=== PATIENT | female | born 1935 | race Caucasian/White ===

== ENCOUNTER 2019-11-03 09:25 | Outpatient (CLI) | payer MEDICARE, BC, SELFPAY ==
--- NOTE | ~2019-11-03 | MM_ITS ---
EXAMINATION: MM screening [facility] BI w jamie HISTORY: Screening TECHNIQUE: Craniocaudal and mediolateral oblique 3-D tomosynthesis images were obtained and synthetic 2-D images were generated. CAD analysis was submitted and interpreted. COMPARISON: Comparison to multiple prior studies sequentially, with oldest reviewed study dated 10/06. BREAST PARENCHYMAL COMPOSITION: There are scattered areas of fibroglandular density. FINDINGS: Clustered bilateral breast calcifications and asymmetry is are stable. There is no evidence of suspicious mass, calcification, or architectural distortion to suggest malignancy in either breas t. There has been no suspicious interval change. IMPRESSION: 1. No mammographic evidence of malignancy. 2. Recommend routine screening mammography in one year. BI-RADS Category 2: Benign finding(s). Reviewed, dictated and finalized at location A.
== END 2019-11-03 09:26 | disposition home or self-care (01) ==
LOC: ANHIMG 09:29
PROVIDERS: PCP Family Medicine; Visit Provider Obstetrics & Gynecology
DX: Z12.31 Encounter for screening mammogram for malignant neoplasm of breast (principal)
CPT/HCPCS: 77063; 77067

== ENCOUNTER 2020-11-04 08:55 | Outpatient (CLI) | payer OTHER, SELFPAY ==
--- NOTE | ~2020-11-04 | MM_ITS ---
EXAMINATION: MM screening [facility] BI w jamie HISTORY: Screening TECHNIQUE: Craniocaudal and mediolateral oblique 3-D tomosynthesis images were obtained and synthetic 2-D images were generated. CAD analysis was submitted and interpreted. COMPARISON: Comparison to multiple prior studies sequentially, with oldest reviewed study dated 10/13. BREAST PARENCHYMAL COMPOSITION: Breast composed of scattered areas of fibroglandular density. FINDINGS: There are stable bilateral breast asymmetries and calcifications. There are surgical change s in the upper outer quadrant of the left breast posteriorly. There is a developing focal asymmetry i n the upper central aspect of the left breast adjacent to a tissue marker. There are punctate associa karishma calcifications. IMPRESSION: 1. Developing left breast asymmetry, upper central left breast anteriorly. 2. Additional mammographic views and possible breast ultrasound are recommended. BI-RADS Category 0: Incomplete: Needs additional imaging evaluation. Reviewed, dictated and finalized at location A. IMPRESSION: 1. Developing left breast asymmetry, upper central left breast anteriorly. 2. Additional mammographic views and possible breast ultrasound are recommended . BI-RADS Category 0: Incomplete: Needs additional imaging evaluation.
== END 2020-11-04 08:56 | disposition home or self-care (01) ==
LOC: ANHIMG 08:57
PROVIDERS: PCP Family Medicine; Visit Provider Nurse Practitioner
DX: Z12.31 Encounter for screening mammogram for malignant neoplasm of breast (principal); R92.8 Other abnormal and inconclusive findings on diagnostic imaging of breast
CPT/HCPCS: 77063; 77067

== ENCOUNTER 2020-11-21 12:38 | Outpatient (CLI) | payer MEDICARE, SELFPAY ==
--- NOTE | ~2020-11-21 | MMUS_ITS ---
EXAMINATION: MM diagnostic [facility] LT w jamie, US breast LT limited HISTORY: Follow-up left breast asymmetry TECHNIQUE: Additional 3-D tomosynthesis images of the left breast were performed and synthetic 2-D im ages were generated. CAD analysis was submitted and interpreted. High resolution Limited left breast ultrasound was performed. COMPARISON: Comparison to multiple prior studies sequentially, with oldest reviewed study dated 08/2017. BREAST PARENCHYMAL COMPOSITION: Breast composed of scattered areas of fibroglandular density. FINDINGS: MAMMOGRAPHIC FINDINGS: There is a developing spiculated mass in the upper central aspect of the left breast anteriorly with adjacent tissue marker. There are surgical changes in the mid outer aspect of the left breast, consis tent with previous lumpectomy site. There are coarse benign-appearing left breast calcifications. ULTRASOUND: Limited left breast ultrasound: At 3:00, 3 cm from the nipple, there is an 11 mm irregular shaped hyp oechoic mass with posterior shadowing, likely corresponding to prior lumpectomy site. At 3:00, 4 cm f rom the nipple there is a 6 mm calcification with posterior shadowing. At 10:00, 3 cm from the nipple , there is an oval hypoechoic mass with echogenic hilum measuring 4 mm, likely benign intramammary ly mph node. At 11:00 there is an oval circumscribed hypoechoic mass with internal vascularity measuring 7 mm. There is posterior shadowing and parallel orientation. There is internal vascularity. At 12:00 , 1-2 cm from the nipple, there is an irregular shaped hypoechoic mass with posterior shadowing measu ring 8 x 8 x 5 mm new spiculated density seen on mammography. There is subtle internal vascularity. IMPRESSION: 1. Irregular shaped hypoechoic mass at 12:00, 1-2 cm from the nipple corresponding to the developing spiculated mass seen on mammography. Solid oval hypoechoic mass at 11:00, 1 cm from the nipple. 2. Ultrasound-guided left breast biopsies recommended. BI-RADS category 4, suspicious findings. Reviewed, dictated and finalized at location A. IMPRESSION: 1. Irregular shaped hypoechoic mass at 12:00, 1-2 cm from the nipple correspond ing to the developing spiculated mass seen on mammography. Solid oval hypoechoi c mass at 11:00, 1 cm from the nipple. 2. Ultrasound-guided left breast biopsies recommended. BI-RADS category 4, suspicious findings.
== END 2020-11-21 12:39 | disposition home or self-care (01) ==
PROVIDERS: PCP Family Medicine; Visit Provider Family Medicine
DX: R92.8 Other abnormal and inconclusive findings on diagnostic imaging of breast (principal)
CPT/HCPCS: 76642; 77061; 77065; G0279

== ENCOUNTER 2020-12-13 10:00 | Outpatient (CLI) | payer MEDICARE, SELFPAY ==
--- NOTE | ~2020-12-13 | MMUS_ITS ---
EXAMINATION: US GUIDED NEEDLE BIOPSY DATE: 12/13/2020 13:33 CDT INDICATION: 11:00 and 12:00 sonographic breast masses. TECHNIQUE AND FINDINGS: The risks and potential benefits of the procedure were discussed with the patient, and written inform ed consent was obtained. Timeout procedure was performed. After sterile preparation of the left breas t, 1% lidocaine was utilized for local anesthesia. A 14G spring-loaded biopsy gun needle was advanced to the edge of the regions of interest first at 11 :00 and subsequently at 12:00 from a medial approach utilizing sonographic guidance. A total of at l east three tissue core samples were obtained through each lesion. An Inrad tissue marker clip was th en placed at the biopsy site. Hemostasis was achieved. A sterile bandage was applied. The patient tolerated procedure well. There was a hematoma at the 11:00 biopsy site, for which extend ed manual compression of 30 minutes was applied. The patient was given verbal instructions prior to departing from the department. A two view mammogra m was performed to document tissue marker clip placement. The tissue samples were submitted to surgic al pathology for histologic analysis. IMPRESSION: 1. Successful ultrasound guided biopsy of left 11:00 and 12:00 breast masses with biopsy marker plac ement. Please refer to pathology report for histologic analysis. Reviewed, dictated and finalized at Location [facility]. Reviewed, dictated and finalized at location A. IMPRESSION: 1. Successful ultrasound guided biopsy of left 11:00 and 12:00 breast masses w ith biopsy marker placement. Please refer to pathology report for histologic an alysis.
--- NOTE | ~2020-12-13 | US_ITS ---
EXAMINATION: US GUIDED NEEDLE BIOPSY DATE: 12/13/2020 13:49 CDT INDICATION: Sonographic 11:00 and 12:00 masses. TECHNIQUE AND FINDINGS: The risks and potential benefits of the procedure were discussed with the patient, and written inform ed consent was obtained. Timeout procedure was performed. After sterile preparation of the left breas t, 1% lidocaine was utilized for local anesthesia. A 14G spring-loaded biopsy gun needle was advanced to the edge of the 11:00 and subsequently 12:00 le sions from a medial approach utilizing sonographic guidance. A total of up to 4 tissue core samples were obtained through the lesion. An Inrad tissue marker clip was then placed at the biopsy site. He mostasis was achieved. A sterile bandage was applied. The patient tolerated procedure well. There was a hematoma at the 11:00 biopsy site, for which 30 min utes extended manual compression was applied. The patient was given verbal instructions prior to dep arting from the department. A two view mammogram was performed to document tissue marker clip placeme nt. The tissue samples were submitted to surgical pathology for histologic analysis. IMPRESSION: 1. Successful ultrasound guided biopsy of left 11:00 and 12:00 breast masses with biopsy marker plac ement. Please refer to pathology report for histologic analysis. Reviewed, dictated and finalized at [facility]. Reviewed, dictated and finalized at location A. IMPRESSION: 1. Successful ultrasound guided biopsy of left 11:00 and 12:00 breast masses w ith biopsy marker placement. Please refer to pathology report for histologic an alysis.
== END 2020-12-13 10:01 | disposition home or self-care (01) ==
LOC: ANHIMG 10:04
PROVIDERS: PCP Family Medicine; Visit Provider Surgery
DX: R92.8 Other abnormal and inconclusive findings on diagnostic imaging of breast (principal); Z85.3 Personal history of malignant neoplasm of breast; N60.32 Fibrosclerosis of left breast; N60.31 Fibrosclerosis of right breast; N64.1 Fat necrosis of breast
CPT/HCPCS: 19083; 19084; 88305; 88342; A4648

== ENCOUNTER 2021-05-12 09:36 | Outpatient (CLI) | payer MEDICARE, SELFPAY ==
--- NOTE | ~2021-05-12 | DEXA_ITS ---
Bone Density Report Name: JOSUE LEE Age: 85 Sex: Female Ethnicity: White Date of : 1935 Indication: osteopenia; height loss; cancer; postmenopausal Referring Provider: JOSH BARCENAS Study: Bone densitometry was performed. Exam Date: May 12, 2021 Accession number: [id number] Bone Density: Region BMD T-score Z-score Classification AP Spine (L1, L2) 0.942 -0.3 2.3 Normal Femoral Neck (Left) 0.610 -2.2 0.3 Osteopenia Total Hip (Left) 0.745 -1.6 0.6 Osteopenia Total Hip Bilateral Avg 0.763 -1.5 0.8 Osteopenia Femoral Neck (Right) 0.750 -0.9 1.6 Normal Total Hip (Right) 0.780 -1.3 0.9 Osteopenia World Health Organization criteria for BMD impression classify patients as: Normal (T-score at or above -1.0), Osteopenia (T-score between -1.0 and -2.5), or Osteoporosis (T-score at or below -2.5). 10-year Fracture Risk(1): Major Osteoporotic Fracture 15% Hip Fracture 4.8% Reported Risk Factors: [place] (), Neck BMD=0.610, BMI=34.1 (1) FRAX(R) Version 3.08. Fracture probability calculated for an untreated patient. Fracture probability may be lower if the patient has received treatment. Previous Exams: Region Exam Age BMD T-score BMD Change BMD Change Date g/cm2 vs Baseline vs Previous AP Spine(L1, L2) 05/12/2021 85 0.942 -0.3 0.098(11.6%)# 0.104(12.4%)* 02/09/2019 83 0.839 -1.3 -0.006(-0.7%)# -0.098(-10.5%) 01/18/2017 81 0.937 -0.4 0.093(11.0%)# 0.021(2.3%) 01/14/2015 79 0.916 -0.6 0.072(8.5%)# 0.045(5.2%)# 01/10/2013 77 0.871 -1.0 0.027(3.2%)# 0.066(8.3%)* 01/10/2011 75 0.805 -1.6 -0.040(-4.7%)# -0.071(-8.1%)# 01/05/2009 73 0.875 -0.9 0.031(3.7%)* 0.045(5.4%)* 12/17/2006 71 0.831 -1.3 -0.014(-1.6%) -0.007(-0.8%) 12/06/2004 69 0.837 -1.3 -0.007(-0.8%) -0.007(-0.8%) 08/02/2002 66 0.844 -1.2 Total Hip(Left) 05/12/2021 85 0.745 -1.6 -0.081(-9.8%)# -0.041(-5.2%)* 02/09/2019 83 0.786 -1.3 -0.041(-4.9%)# 0.017(2.2%) 01/18/2017 81 0.769 -1.4 -0.058(-7.0%)# -0.034(-4.3%)* 01/14/2015 79 0.803 -1.1 -0.024(-2.9%)# -0.003(-0.3%)# 01/10/2013 77 0.806 -1.1 -0.021(-2.5%)# 0.024(3.1%) 01/10/2011 75 0.781 -1.3 -0.045(-5.4%)# 0.017(2.3%)# 01/05/2009 73 0.764 -1.5 -0.062(-7.5%)* -0.017(-2.2%) 12/17/2006 71 0.781 -1.3 -0.045(-5.5%)* -0.011(-1.3%) 12/06/2004 69 0.791 -1.2 -0.035(-4.2%)* -0.035(-4.2%)* 08/02/2002 66 0.826 -0.9 Total Hip(Right) 05/12/2021 85 0.780 -1.3 -0.045(-5.4%)# -0.014(-1.8%) 02/09/2019 83 0.794 -1.2 -0.030(-3.7%)# -0.011(-1.4%) 01/18/2017 81 0.805
== END 2021-05-12 09:37 | disposition home or self-care (01) ==
PROVIDERS: PCP Family Medicine; Visit Provider Obstetrics & Gynecology
DX: R29.890 Loss of height (principal); Z78.0 Asymptomatic menopausal state; M85.852 Other specified disorders of bone density and structure, left thigh; M85.851 Other specified disorders of bone density and structure, right thigh
CPT/HCPCS: 77080

== ENCOUNTER 2021-08-07 08:40 | Outpatient (CLI) | payer MEDICARE, SELFPAY ==
--- NOTE | 2021-08-07 08:53 | ECHO_ITS ---
Patient Info Name: Claudia Gordillo Age: 85 years : 1935 Gender: Female Ht: 66 in Wt: 205 lbs BSA: 2.12 m2 HR: 79 bpm BP: 156 / 79 mmHg Technical Quality: Fair Exam Date: 08/07/2021 9:16 AM Exam Location: [facility] Patient Status: Outpatient Admit Date: 08/07/2021 Staff Ordering Physician: Shankar Wilkins DO [employer] Developer: Umm Zapata RDCS Attending Provider: Shankar Wilkins DO Referring Physician: Franky FAIRCHILD; Exam Type: CA echo doppler color flow Study Info Indications - heart disease unspecified Complete two-dimensional, color flow and Doppler transthoracic echocardiogram is performed. Summary 1. Complete two-dimensional, color flow and Doppler transthoracic echocardiogram is performed. 2. Left ventricular chamber dimension is normal. 3. Left ventricular systolic function is normal, estimated at 60-65%. 4. The left ventricular diastolic function is grade I diastolic dysfunction. 5. E/e' 17 is elevated. 6. Mild right ventricular hypertrophy. 7. Left atrial chamber dimension is moderately enlarged. 8. Right atrial chamber dimension is mildly enlarged. 9. There is mild tricuspid valve regurgitation. 10. No pulmonary hypertension, estimated pulmonary arterial systolic pressure is 39 mmHg. Left Ventricle E/e' 17 is elevated. Left ventricular chamber dimension is normal. Left ventricular systolic function is normal, estimated at 60-65%. The left ventricular diastolic function is grade I diastolic dysfunction. Right Ventricle Mild right ventricular hypertrophy. Right ventricular chamber dimension is normal. Right ventricular systolic function is normal. Left Atria Left atrial chamber dimension is moderately enlarged. Right Atria Right atrial chamber dimension is mildly enlarged. Aortic Valve The aortic valve is trileaflet. There is no aortic valve stenosis. There is no aortic valve regurgitation. Pulmonic Valve There is no pulmonic regurgitation. Mitral Valve There is no mitral valve stenosis. There is no mitral valve regurgitation. Tricuspid Valve There is mild tricuspid valve regurgitation. No pulmonary hypertension, estimated pulmonary arterial systolic pressure is 39 mmHg. Pericardium/Pleural There is no pericardial effusion. Inferior Vena Cava Normal inferior vena cava with >50% collapse upon inspiration consistent with normal right atrial pressure, 5 mmHg. Aorta The aortic root size at the sinus of Valsalva is normal. Left Ventricular Outflow Tract Name Value Normal LVOT 2D LVOT Diameter 2.0 cm LVOT Doppler LVOT Peak Gradient 6 mmHg LVOT Mean Gradient 3 mmHg LVOT VTI 23 cm LVOT VTI/AV VTI Ratio 0.8 LVOT Stroke Volume 70 ml LVOT CO 14.3 l/min LVOT CI 6.7 l/min/m2 Pulmonic Valve Name Value Normal
== END 2021-08-07 08:41 | disposition home or self-care (01) ==
LOC: ANHCARD 08:42
PROVIDERS: PCP Family Medicine; Visit Provider Internal Medicine Cardiovascular Disease
DX: I51.9 Heart disease, unspecified (principal); I51.7 Cardiomegaly
CPT/HCPCS: 93306

== ENCOUNTER 2021-12-15 08:12 | Outpatient (CLI) | payer MEDICARE, SELFPAY ==
--- NOTE | ~2021-12-15 | MM_ITS ---
EXAMINATION: MM screening [facility] BI w jamie HISTORY: Screening mammogram, history of left breast cancer TECHNIQUE: Craniocaudal and mediolateral oblique 3-D tomosynthesis images were obtained and synthetic 2-D images were generated. CAD analysis was submitted and interpreted. COMPARISON: 11/21/2020, 11/04/2020, 11/03/2019, 10/31/2018 BREAST PARENCHYMAL COMPOSITION: The breasts are almost entirely fatty. FINDINGS: Scattered benign-appearing calcifications are present. There are stable lumpectomy changes in the upper outer quadrant of the left breast. No suspicious mass, calcification, or architectural d istortion are identified in either breast to suggest malignancy. There has been no suspicious interva l change. IMPRESSION: 1. No mammographic evidence of malignancy. 2. Recommend routine screening mammography in one year. BI-RADS Category 2: Benign finding(s). Reviewed, dictated and finalized at location A.
== END 2021-12-15 08:13 | disposition home or self-care (01) ==
LOC: ANHIMG 08:14
PROVIDERS: PCP Family Medicine; Visit Provider Obstetrics & Gynecology
DX: Z12.31 Encounter for screening mammogram for malignant neoplasm of breast (principal)
CPT/HCPCS: 77063; 77067

== ENCOUNTER 2022-01-19 08:58 | Outpatient (CLI) | payer MEDICARE, SELFPAY ==
[2022-01-19 19:55] LABS: Basophils Absolute Auto 0.1 K/mm3 (0.0-0.1); Basophils Percent Auto 0.9 % (0.2-1.2); Eosinophils Absolute Auto 0.1 K/mm3 (0-0.3); Eosinophils Percent Auto 1.5 % (0-4.4); Hematocrit 44.3 % (37.0-47.0); Hemoglobin 14.6 g/dL (12.0-15.0); Immature Granulocyte Absolute 0.03 K/mm3 (0.00-0.031); Immature Granulocyte Percent A 0.3 % (0-0.5); Lymphocytes Absolute Auto 1.21 K/mm3 (0.9-3.2); Lymphocytes Percent Auto 13.3 % (18.3-44.2); Mean Corpuscular Hemoglobin 30.8 pg (26-34); Mean Corpuscular Volume 93.5 fl (80-100); Mean Platelet Volume 11.5 fl (7.4-10.4); Monocytes Absolute Auto 0.7 K/mm3 (0.1-0.6); Monocytes Percent Auto 7.8 % (2.6-8.5); Neutrophils Absolute Auto 6.9 K/mm3 (1.3-6.7); Neutrophils Percent Auto 76.2 % (45.5-73.1); Platelet Count Result 229 k/mm3 (150-375); Red Blood Count 4.74 M/mm3 (4.2-5.4); Red Cell Distribution Width 13.7 % (11.5-14.5); White Blood Count 9.1 K/mm3 (4.5-10.0)
[2022-01-19 20:04] LABS: Alanine Aminotransferase 18 U/L (6-35); Albumin Level 4.4 g/dL (3.5-5.1); Alkaline Phosphatase 83 U/L (38-126); Anion Gap 9 mmol/L (8-16); Aspartate Amino Transferase 35 U/L (14-36); Bilirubin,Total 0.8 mg/dL (0.2-1.3); Blood Urea Nitrogen 18 mg/dL (7-17); Calcium 9.4 mg/dL (8.4-10.2); Carbon Dioxide 30 mmol/L (22-30); Chloride 100 mmol/L (98-107); Cholesterol 187 mg/dL (0-200); Estimated Glomerular Filt Rate 53; Glucose 93 mg/dL (65-110); HDL Direct 67 mg/dL; Potassium 3.7 mmol/L (3.4-5.0); Sodium 139 mmol/L (137-145); Triglycerides 176 mg/dL (<150)
[2022-01-19 20:21] LABS: LDL Cholesterol Direct 73 mg/dL
== END 2022-01-19 08:59 | disposition home or self-care (01) ==
LOC: ANHGOSHLAB 09:01
PROVIDERS: PCP Family Medicine; Visit Provider Nurse Practitioner
DX: E78.5 Hyperlipidemia, unspecified (principal); I10 Essential (primary) hypertension
CPT/HCPCS: 36415; 80053; 80061; 85025

== ENCOUNTER 2023-01-05 07:52 | Outpatient (CLI) | payer MEDICARE, SELFPAY ==
--- NOTE | ~2023-01-05 | MM_ITS ---
EXAMINATION: MM screening [facility] BI w jamie HISTORY: Screening mammogram TECHNIQUE: Craniocaudal and mediolateral oblique 3-D tomosynthesis images were obtained and synthetic 2-D images were generated. CAD analysis was submitted and interpreted. COMPARISON: 12/15/2021, 11/04/2020, 11/03/2019 BREAST PARENCHYMAL COMPOSITION:There are scattered areas of fibroglandular density. FINDINGS: There is stable postoperative change at the upper, outer left breast. Numerous bilateral be nign calcifications are unchanged. Stable small benign masses in the central right breast. No suspici ous mass, calcification, or architectural distortion are identified in either breast to suggest malig zion. There has been no suspicious interval change. IMPRESSION: No mammographic evidence of malignancy. Recommend routine screening mammography in one year. BI-RADS Category 2: Benign finding(s). Reviewed, dictated and finalized at [facility]. [employer]
== END 2023-01-05 07:53 | disposition home or self-care (01) ==
PROVIDERS: PCP Family Medicine; Visit Provider Nurse Practitioner Family
DX: Z12.31 Encounter for screening mammogram for malignant neoplasm of breast (principal)
CPT/HCPCS: 77063; 77067

== ENCOUNTER 2023-01-27 08:48 | Outpatient (CLI) | payer MEDICARE, SELFPAY ==
[2023-01-27 12:33] LABS: Basophils Absolute Auto 0.1 K/mm3 (0.0-0.1); Basophils Percent Auto 1.1 % (0.2-1.2); Eosinophils Absolute Auto 0.2 K/mm3 (0-0.3); Eosinophils Percent Auto 2.8 % (0-4.4); Hematocrit 43.4 % (37.0-47.0); Immature Granulocyte Absolute 0.04 K/mm3 (0.00-0.031); Immature Granulocyte Percent A 0.6 % (0-0.5); Lymphocytes Absolute Auto 1.07 K/mm3 (0.9-3.2); Lymphocytes Percent Auto 15.1 % (18.3-44.2); Mean Corpuscular HGB Conc 32.3 g/dl (32-36); Mean Corpuscular Hemoglobin 30.7 pg (26-34); Mean Corpuscular Volume 95.2 fl (80-100); Mean Platelet Volume 11.4 fl (7.4-10.4); Monocytes Absolute Auto 0.8 K/mm3 (0.1-0.6); Monocytes Percent Auto 10.6 % (2.6-8.5); Neutrophils Percent Auto 69.8 % (45.5-73.1); Platelet Count Result 250 k/mm3 (150-375); Red Blood Count 4.56 M/mm3 (4.2-5.4); Red Cell Distribution Width 13.5 % (11.5-14.5); White Blood Count 7.1 K/mm3 (4.5-10.0)
[2023-01-27 12:52] LABS: Alanine Aminotransferase 17 U/L (6-35); Albumin Level 4.1 g/dL (3.5-5.1); Alkaline Phosphatase 83 U/L (38-126); Anion Gap 9 mmol/L (8-16); Aspartate Amino Transferase 39 U/L (14-36); Blood Urea Nitrogen 21 mg/dL (7-17); Calcium 9.7 mg/dL (8.4-10.2); Carbon Dioxide 30 mmol/L (22-30); Chloride 98 mmol/L (98-107); Cholesterol 167 mg/dL (0-200); Estimated Glomerular Filt Rate 53; Glucose 88 mg/dL (65-110); HDL Direct 64 mg/dL; Potassium 3.9 mmol/L (3.4-5.0); Sodium 137 mmol/L (137-145); Triglycerides 107 mg/dL (<150)
[2023-01-27 13:04] LABS: LDL Cholesterol Direct 78 mg/dL
[2023-01-27 15:47] LABS: Hemoglobin A1C 5.3 % (<5.7)
== END 2023-01-27 08:49 | disposition home or self-care (01) ==
PROVIDERS: PCP Family Medicine; Visit Provider Nurse Practitioner Family
DX: R73.03 Prediabetes (principal); I12.9 Hypertensive chronic kidney disease with stage 1 through stage 4 chronic kidney disease, or unspecified chronic kidney disease; N18.9 Chronic kidney disease, unspecified; Z13.29 Encounter for screening for other suspected endocrine disorder; Z13.220 Encounter for screening for lipoid disorders
CPT/HCPCS: 36415; 80053; 80061; 83036; 84443; 85025

== ENCOUNTER 2023-07-28 08:55 | Outpatient (CLI) | payer MEDICARE, SELFPAY ==
[2023-07-28 12:43] LABS: Basophils Absolute Auto 0.1 K/mm3 (0.0-0.1); Basophils Percent Auto 0.9 % (0.2-1.2); Eosinophils Absolute Auto 0.1 K/mm3 (0-0.3); Eosinophils Percent Auto 1.4 % (0-4.4); Hemoglobin 14.5 g/dL (12.0-15.0); Immature Granulocyte Absolute 0.06 K/mm3 (0.00-0.031); Immature Granulocyte Percent A 0.6 % (0-0.5); Lymphocytes Absolute Auto 1.11 K/mm3 (0.9-3.2); Lymphocytes Percent Auto 11.9 % (18.3-44.2); Mean Corpuscular HGB Conc 32.2 g/dl (32-36); Mean Corpuscular Volume 96.4 fl (80-100); Mean Platelet Volume 11.3 fl (7.4-10.4); Monocytes Absolute Auto 0.9 K/mm3 (0.1-0.6); Monocytes Percent Auto 9.7 % (2.6-8.5); Neutrophils Percent Auto 75.5 % (45.5-73.1); Platelet Count Result 252 k/mm3 (150-375); Red Blood Count 4.67 M/mm3 (4.2-5.4); Red Cell Distribution Width 13.7 % (11.5-14.5); White Blood Count 9.3 K/mm3 (4.5-10.0)
[2023-07-28 12:59] LABS: Alanine Aminotransferase 19 U/L (6-35); Albumin Level 4.4 g/dL (3.5-5.1); Alkaline Phosphatase 85 U/L (38-126); Anion Gap 6 mmol/L (4-12); Aspartate Amino Transferase 54 U/L (14-36); Blood Urea Nitrogen 23 mg/dL (7-17); Calcium 9.6 mg/dL (8.4-10.2); Carbon Dioxide 31 mmol/L (22-30); Chloride 102 mmol/L (98-107); Cholesterol 188 mg/dL (0-200); Estimated Glomerular Filt Rate 53; Glucose 94 mg/dL (65-110); HDL Direct 70 mg/dL; Sodium 139 mmol/L (137-145); Triglycerides 142 mg/dL (<150)
[2023-07-28 13:10] LABS: LDL Cholesterol Direct 90 mg/dL
[2023-07-28 13:53] LABS: Hemoglobin A1C 5.3 % (<5.7)
== END 2023-07-28 08:56 | disposition home or self-care (01) ==
LOC: ANHGOSHLAB 08:57
PROVIDERS: PCP Family Medicine; Visit Provider Nurse Practitioner Family
DX: N18.9 Chronic kidney disease, unspecified (principal); F32.5 Major depressive disorder, single episode, in full remission; E55.9 Vitamin D deficiency, unspecified; I12.9 Hypertensive chronic kidney disease with stage 1 through stage 4 chronic kidney disease, or unspecified chronic kidney disease; H35.30 Unspecified macular degeneration; E78.2 Mixed hyperlipidemia; R73.03 Prediabetes; E78.5 Hyperlipidemia, unspecified; E53.8 Deficiency of other specified B group vitamins; E03.9 Hypothyroidism, unspecified
CPT/HCPCS: 36415; 80053; 80061; 82607; 83036; 84443; 85025

== ENCOUNTER 2023-09-29 10:18 | Outpatient (CLI) | payer MEDICARE, SELFPAY ==
--- NOTE | ~2023-09-29 | DEXA_ITS ---
Bone Density Report Name: JOSUE LEE Age: 87 Sex: Female Ethnicity: White Date of : 1935 Indication: osteopenia; height loss; cancer; Referring Provider: HEIEK RENTERIA Study: Bone densitometry was performed. Exam Date: September 29, 2023 Accession number: [id number] Bone Density: Region BMD T-score Z-score Classification AP Spine(L1-L4) 1.095 0.4 3.3 Normal Femoral Neck (Left) 0.616 -2.1 0.4 Osteopenia Total Hip (Left) 0.741 -1.6 0.7 Osteopenia Femoral Neck (Right) 0.627 -2.0 0.5 Osteopenia Total Hip (Right) 0.682 -2.1 0.2 Osteopenia Total Hip Mean 0.711 -1.9 0.5 Osteopenia World Health Organization criteria for BMD impression classify patients as: Normal (T-score at or above -1.0), Osteopenia (T-score between -1.0 and -2.5), or Osteoporosis (T-score at or below -2.5). 10-year Fracture Risk(1): Major Osteoporotic Fracture 15% Hip Fracture 4.5% Reported Risk Factors: [place] (), Neck BMD=0.616, BMI=33.6 (1) FRAX(R) Version 3.08. Fracture probability calculated for an untreated patient. Fracture probability may be lower if the patient has received treatment. Previous Exams: Region Exam Age BMD T-score BMD Change BMD Change Date g/cm2 vs Baseline vs Previous AP Spine (L1-L4) 09/29/2023 87 1.095 0.4 0.146 (15.4%)# 0.146 (15.4%)# 01/10/2011 75 0.949 -0.9 Total Hip(Left) 09/29/2023 87 0.741 -1.6 -0.040 (-5.1%) -0.004 (-0.5%) 05/12/2021 85 0.745 -1.6 -0.036 (-4.7%) -0.041 (-5.2%) 02/09/2019 83 0.786 -1.3 0.004 (0.5%)# 0.017 (2.2%) 01/18/2017 81 0.769 -1.4 -0.013 (-1.6%) -0.034 (-4.3%) 01/14/2015 79 0.803 -1.1 0.021 (2.7%)# 0.021 (2.7%)# 01/10/2011 75 0.781 -1.3 Total Hip(Right) 09/29/2023 87 0.682 -2.1 -0.087 (-11.3% -0.098 (-12.6% 05/12/2021 85 0.780 -1.3 0.011 (1.4%)# -0.014 (-1.8%) 02/09/2019 83 0.794 -1.2 0.025 (3.3%)# -0.011 (-1.4%) 01/18/2017 81 0.805 -1.1 0.036 (4.7%)# 0.011 (1.3%) 01/14/2015 79 0.795 -1.2 0.026 (3.4%)# 0.026 (3.4%)# 01/10/2011 75 0.769 -1.4 *Denotes significance at 95% confidence level, LSC for AP Spine = 0.022 g/cm2, LSC for Total Hip = 0.027 g/cm2 # Denotes dissimilar scan types or analysis methods Clinical Information Provided by Patient: Has used the following medications: Vitamin D, Calcium Has the following medical conditions: Cancer Patient maximum height was 68.0 Menopause Age: 50 No regular weight bearing exercise Onset of me
== END 2023-09-29 10:19 | disposition home or self-care (01) ==
PROVIDERS: PCP Family Medicine; Referring Provider Obstetrics & Gynecology; Visit Provider Nurse Practitioner Family
DX: Z78.0 Asymptomatic menopausal state (principal); M85.89 Other specified disorders of bone density and structure, multiple sites
CPT/HCPCS: 77080

== ENCOUNTER 2024-01-10 07:50 | Outpatient (CLI) | payer MEDICARE, SELFPAY ==
--- NOTE | ~2024-01-10 | MM_ITS ---
EXAMINATION: MM screening [facility] BI w jamie HISTORY: Screening mammogram TECHNIQUE: Craniocaudal and mediolateral oblique 3-D tomosynthesis images were obtained and synthetic 2-D images were generated. CAD analysis was submitted and interpreted. COMPARISON: 01/05/2023, 12/15/2021, 11/04/2020 BREAST PARENCHYMAL COMPOSITION:Not Dense. There are scattered areas of fibroglandular density. FINDINGS: Stable postoperative distortion at the upper, outer left breast. Stable bilateral benign ca lcifications. No suspicious mass, calcification, or architectural distortion are identified in either breast to suggest malignancy. There has been no suspicious interval change. IMPRESSION: No mammographic evidence of malignancy. Recommend routine screening mammography in one year. BI-RADS Category 2: Benign finding(s). Reviewed, dictated and finalized at [facility]. [employer]
== END 2024-01-10 07:51 | disposition home or self-care (01) ==
LOC: ANHIMG 07:55
PROVIDERS: PCP Family Medicine; Visit Provider Obstetrics & Gynecology
DX: Z12.31 Encounter for screening mammogram for malignant neoplasm of breast (principal)
CPT/HCPCS: 77063; 77067

== ENCOUNTER 2024-01-28 09:03 | Outpatient (CLI) | payer MEDICARE, SELFPAY ==
[2024-01-28 14:34] LABS: Basophils Absolute Auto 0.1 K/mm3 (0.0-0.1); Basophils Percent Auto 1.1 % (0.2-1.2); Eosinophils Absolute Auto 0.4 K/mm3 (0-0.3); Eosinophils Percent Auto 4.5 % (0-4.4); Hematocrit 44.2 % (37.0-47.0); Hemoglobin 14.3 g/dL (12.0-15.0); Immature Granulocyte Absolute 0.06 K/mm3 (0.00-0.031); Immature Granulocyte Percent A 0.7 % (0-0.5); Lymphocytes Absolute Auto 1.04 K/mm3 (0.9-3.2); Lymphocytes Percent Auto 12.2 % (18.3-44.2); Mean Corpuscular HGB Conc 32.4 g/dl (32-36); Mean Corpuscular Hemoglobin 31.5 pg (26-34); Mean Corpuscular Volume 97.4 fl (80-100); Mean Platelet Volume 11.9 fl (7.4-10.4); Monocytes Absolute Auto 1.1 K/mm3 (0.1-0.6); Neutrophils Absolute Auto 5.8 K/mm3 (1.3-6.7); Neutrophils Percent Auto 68.5 % (45.5-73.1); Platelet Count Result 216 k/mm3 (150-375); Red Blood Count 4.54 M/mm3 (4.2-5.4); Red Cell Distribution Width 13.9 % (11.5-14.5); White Blood Count 8.5 K/mm3 (4.5-10.0)
[2024-01-28 14:46] LABS: Alanine Aminotransferase 18 U/L (6-35); Albumin Level 4.4 g/dL (3.5-5.1); Alkaline Phosphatase 96 U/L (38-126); Anion Gap 5 mmol/L (4-12); Aspartate Amino Transferase 38 U/L (14-36); Bilirubin,Total 1.1 mg/dL (0.2-1.3); Blood Urea Nitrogen 19 mg/dL (7-17); Calcium 9.6 mg/dL (8.4-10.2); Carbon Dioxide 32 mmol/L (22-30); Chloride 101 mmol/L (98-107); Cholesterol 184 mg/dL (0-200); Estimated Glomerular Filt Rate 53; Glucose 86 mg/dL (65-110); HDL Direct 87 mg/dL; Potassium 4.4 mmol/L (3.4-5.0); Sodium 138 mmol/L (137-145); Triglycerides 127 mg/dL (<150)
[2024-01-28 14:57] LABS: LDL Cholesterol Direct 67 mg/dL
[2024-01-28 15:12] LABS: Vitamin D 25 Hydroxy 42.5 ng/mL
== END 2024-01-28 09:04 | disposition home or self-care (01) ==
LOC: ANHGOSHLAB 09:04
PROVIDERS: PCP Family Medicine; Visit Provider Nurse Practitioner Family
DX: E78.5 Hyperlipidemia, unspecified (principal); I10 Essential (primary) hypertension; E55.9 Vitamin D deficiency, unspecified; E53.8 Deficiency of other specified B group vitamins
CPT/HCPCS: 36415; 80053; 80061; 82306; 82607; 85025

== ENCOUNTER 2024-05-01 08:23 | Outpatient (CLI) | payer MEDICARE, SELFPAY ==
--- NOTE | ~2024-05-01 | MR_ITS ---
EXAMINATION: MR shoulder LT wo con DATE: 05/01/2024 09:17 INDICATION: Left shoulder pain. TECHNIQUE: Magnetic resonance imaging (MRI) of the left shoulder was performed without intravenous co ntrast. Sequences included axial PD-weighted FS FSE, coronal oblique PD-weighted FS FSE and T2-weight ed FS FSE, and sagittal oblique T2-weighted FS FSE and T1-weighted FSE. COMPARISON: None. FINDINGS: Coracoacromial arch: The acromion undersurface is curved in morphology (type II). There is severe acromioclavicular joint osteoarthritis including inferiorly directed osteophytes. There is moderate subacromial/subdeltoid bu rsitis. Rotator cuff: There is severe supraspinatus and infraspinatus tendinopathy. 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 Teres minor tendon is normal. There is sever e subscapularis tendinopathy with partial tear. There is mild fatty atrophy of supraspinatus and infr aspinatus muscle bellies. Biceps tendon and glenoid labrum: Biceps tendon is in bicipital groove. There is mild intra-articular biceps tendinopathy. There is wid espread tearing of the glenoid labrum. Fluid: There is a large glenohumeral joint effusion with loose bodies. Bones/cartilage: There is extensive full-thickness cartilage loss of humeral head and glenoid with bone remodeling inc luding glenoid bone volume loss. IMPRESSION: 1. 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 2. Severe rotator cuff tendinopathy with partial tears. 3. Large glenohumeral joint effusion with loose bodies. 4. Moderate subacromial/subdeltoid bursitis. 5. Mild biceps tendinopathy. Reviewed, dictated and finalized at location B.
== END 2024-05-01 08:24 | disposition home or self-care (01) ==
LOC: GOSHIMG 08:25
PROVIDERS: PCP Nurse Practitioner Family; Visit Provider Nurse Practitioner Family
DX: M19.012 Primary osteoarthritis, left shoulder (principal); S46.012A Strain of muscle(s) and tendon(s) of the rotator cuff of left shoulder, initial encounter; M75.52 Bursitis of left shoulder; M75.22 Bicipital tendinitis, left shoulder
CPT/HCPCS: 73221

== ENCOUNTER 2024-06-12 08:00 | Outpatient (RCR) | payer MEDICARE, SELFPAY ==
--- NOTE | 2024-03-14 09:14 | OPREHPOC ---
Outpatient Therapy Plan of Care This is a Multidisciplinary Plan of Care that may contain components documented by all disciplines (PT, OT, and ST.) PT Problem 1 PT Problem #1 Knowledge Deficit PT Goal 1 Goal / Goal Update Pt to be IND with issued HEP. Target Visit 8 PT Problem 2 PT Problem #2 Pain PT Goal 1 Goal / Goal Update 1. Pt to report pain no greater than 3/10 in the last week, 2. Pt to report no pain while getting dressed 3. Pt to report no difficulty when at a drive thru window. Target Visit 10 PT Problem 3 PT Problem #3 Impaired Range of Motion PT Goal 1 Goal / Goal Update 1. Pt to increase active shoulder flexion ROM to 110 deg 2. Pt to increase active shoulder abduction ROM to 100 deg Target Visit 10
--- NOTE | 2024-03-14 09:14 | PTOPEVAL1 ---
Assessment and note entered by Drew Madrid, PT, DPT Evaluation Information Assessment Status Evaluation Diagnosis L shoulder pain ICD-10 Condition Codes (PT) Pain in left shoulder M25.512 Subjective Information Pt reports she has no shoulder pain at rest. Her doctor suspects she has a frozen shoulder. She does not have pain unless the tries to use her arm . Reports very limited motion. She is IND, does her own housework, cooking, shopping, ect. Reported Pain Level Pain Score 0: Self Report Assessment PT Clinical Summary Pt presents to therapy today for her initial evaluation with a diagnosis of L shoulder pain. Today she demonstrates s/s consistent with advanced shoulder arthritis. She demonstrates significantly decreased active shoulder ROM, passive shoulder ROM is limited and there is a lot of crepitus present. Overall shoulder function is limited by strength, ROM, and pain. Skilled therapy services are indicated to address the deficits noted above and to improve functional mobility. Plan of Care Interventions Electrical Stimulation,Gait Training,Hot Pack/Cold Pack,Manual Therapy,Neuro Re-education,Patient/ Caregiver Education,Therapeutic Activities, Therapeutic Exercise PT Services Indicated Yes Treatment Frequency and 2x/wk for 8 visits Duration These treatments will address the objective and functional deficits as defined above. The patient will be advanced safely and appropriately in order for the patient to progress towards his/her prior level of function. Additional exercises will be introduced and as well as a comprehensive home exercise program upon discharge, if needed, ?to ensure carryover of functional gains achieved in the clinic. This treatment plan has been reviewed and agreement upon by the patient.
--- NOTE | 2024-04-10 12:41 | OPREHPOC ---
Outpatient Therapy Plan of Care This is a Multidisciplinary Plan of Care that may contain components documented by all disciplines (PT, OT, and ST.) PT Problem 1 PT Problem #1 Knowledge Deficit PT Goal 1 Goal / Goal Update Pt to be IND with issued HEP. Target Visit 8 Progress Met PT Problem 2 PT Problem #2 Pain PT Goal 1 Goal / Goal Update 1. Pt to report pain no greater than 3/10 in the last week, 2. Pt to report no pain while getting dressed 3. Pt to report no difficulty when at a drive thru window. 04/10/24: 1. slow progress 2. progressing 3. no progress Target Visit 10 Progress Partially Met PT Problem 3 PT Problem #3 Impaired Range of Motion PT Goal 1 Goal / Goal Update 1. Pt to increase active shoulder flexion ROM to 110 deg 2. Pt to increase active shoulder abduction ROM to 100 deg 04/10/24: Target Visit 10
--- NOTE | 2024-04-10 12:41 | PTOPPROG ---
Assessment and note entered by Drew Madrid, PT, DPT Evaluation Information Assessment Status Progress Diagnosis L shoulder pain ICD-10 Condition Codes (PT) Pain in left shoulder M25.512 Subjective Information Pt states overall her shoulder is about the same since starting therapy. She states sometimes her shoulder is okay, and other times it is not. She states she still gets a lot of popping in her shoulder. Is planning to get an MRI. Does not have constant pain, just with activity. Assessment PT Clinical Summary Pt presents to therapy today for her progress report following 8 visits of skilled therapy to treat her diagnosis of L shoulder pain. Today she demonstrates improved active shoulder ROM into flexion and abduction, to 70 deg arturo, pain limits further motion. her shoulder function continues to be limited by strength, ROM, and pain. She is progressing slowly towards her therapy goals. Continuation of skilled therapy services are indicated to address the deficits noted above and to improve functional mobility. Plan of Care Interventions Electrical Stimulation,Gait Training,Hot Pack/Cold Pack,Manual Therapy,Neuro Re-education,Patient/ Caregiver Education,Therapeutic Activities, Therapeutic Exercise PT Services Indicated Yes Treatment Frequency and 2x/wk for 8 visits Duration These treatments will address the objective and functional deficits as defined above. The patient will be advanced safely and appropriately in order for the patient to progress towards his/her prior level of function. Additional exercises will be introduced and as well as a comprehensive home exercise program upon discharge, if needed, ?to ensure carryover of functional gains achieved in the clinic. This treatment plan has been reviewed and agreement upon by the patient.
--- NOTE | 2024-04-18 09:21 | PCPTNOTE ---
Patient was called & her scheduled appointment had to be cancelled due to lack of insurance authorization.
--- NOTE | 2024-05-12 11:54 | OPREHPOC ---
Outpatient Therapy Plan of Care This is a Multidisciplinary Plan of Care that may contain components documented by all disciplines (PT, OT, and ST.) PT Problem 1 PT Problem #1 Knowledge Deficit PT Goal 1 Goal / Goal Update Pt to be IND with issued HEP. Target Visit 8 Progress Met PT Problem 2 PT Problem #2 Pain PT Goal 1 Goal / Goal Update 1. Pt to report pain no greater than 3/10 in the last week, 2. Pt to report no pain while getting dressed 3. Pt to report no difficulty when at a drive thru window. 04/10/24: 1. slow progress 2. progressing 3. no progress Target Visit 21 Progress Partially Met PT Problem 3 PT Problem #3 Impaired Range of Motion PT Goal 1 Goal / Goal Update 1. Pt to increase active shoulder flexion ROM to 110 deg 2. Pt to increase active shoulder abduction ROM to 100 deg 04/10/24: Target Visit 10 Progress Partially Met
--- NOTE | 2024-05-12 11:54 | PTOPPROG ---
Assessment and note entered by Ab Harding, PT Evaluation Information Assessment Status Progress Diagnosis L shoulder pain ICD-10 Condition Codes (PT) Pain in left shoulder M25.512 Subjective Information Patient reports that she feels therapy has really helped. Se continue to have difficulty with overhead reach but she can now get to the top of her head as before she could barely get over her shoulder and face. Would like to continue therapy as surgery is her only other option and both she and the physician are not ready to think about surgery at this time. Assessment PT Clinical Summary Patient continues to show significant weakness of shoulder with functional reach and decreased functional shoulder motion. We have seen some progress in reach but she continues to significantly show difficulty with overhead activity and reach away from body. Plan of Care Interventions Electrical Stimulation,Gait Training,Hot Pack/Cold Pack,Manual Therapy,Neuro Re-education,Patient/ Caregiver Education,Therapeutic Activities, Therapeutic Exercise PT Services Indicated Yes Treatment Frequency and 1x/week for 6 visits Duration These treatments will address the objective and functional deficits as defined above. The patient will be advanced safely and appropriately in order for the patient to progress towards his/her prior level of function. Additional exercises will be introduced and as well as a comprehensive home exercise program upon discharge, if needed, ?to ensure carryover of functional gains achieved in the clinic. This treatment plan has been reviewed and agreement upon by the patient.
== END 2024-06-12 23:59 | disposition home or self-care (01) ==
LOC: ANHGOSHPT 08:00
PROVIDERS: PCP Family Medicine; Visit Provider Nurse Practitioner Family
DX: M25.512 Pain in left shoulder (principal)
CPT/HCPCS: 97014; 97110; 97140; 97161; 97530; G0283

== ENCOUNTER 2024-08-01 08:30 | Outpatient (RCR) | payer MEDICARE, SELFPAY ==
--- NOTE | 2024-06-14 10:24 | PCPTNOTE ---
The treatment documented on this account is a continuation of the treatment documented on visit number [id number]. Please see documentation on both accounts to view progress. The Plan of Care has been transitioned and updated within the new V#. I have addressed and agree with the discipline specific Problems, Interventions, and Goals for the current certification period. Completed interventions, outcomes, and problems have been marked as Inactive to facilitate the copying of the Care plan routine for recurring accounts.
--- NOTE | 2024-06-19 09:47 | OPREHPOC ---
Outpatient Therapy Plan of Care This is a Multidisciplinary Plan of Care that may contain components documented by all disciplines (PT, OT, and ST.) PT Problem 1 PT Problem #1 Knowledge Deficit PT Goal 1 Goal / Goal Update Pt to be IND with issued HEP. 06/19/24: 1. met Target Visit 8 Progress Met PT Problem 2 PT Problem #2 Pain PT Goal 1 Goal / Goal Update 1. Pt to report pain no greater than 3/10 in the last week, 2. Pt to report no pain while getting dressed 3. Pt to report no difficulty when at a drive thru window. 04/10/24: 1. slow progress 2. progressing 3. no progress 06/19/24: 1. met 2. met 3. progressing, still pain Target Visit 21 Progress Partially Met PT Problem 3 PT Problem #3 Impaired Range of Motion PT Goal 1 Goal / Goal Update 1. Pt to increase active shoulder flexion ROM to 110 deg 2. Pt to increase active shoulder abduction ROM to 100 deg 06/19/24: 1. slow progress,70 2. slow progress, 65 Target Visit 10 Progress Partially Met
--- NOTE | 2024-06-19 09:47 | PTOPPROG ---
Assessment and note entered by Drew Madrid, PT, DPT Evaluation Information Assessment Status Progress Diagnosis L shoulder pain ICD-10 Condition Codes (PT) Pain in left shoulder M25.512 Subjective Information Pt states she is doing okay, states she still gets pain in her arm/shoulder with certain movements. Her sharp pains have decreased and now reports she a discomfort. She reports still having trouble getting something off a high shelf if both hands are needed. Assessment PT Clinical Summary Patient has completed 21visits of skilled therapy, she continues to show significant weakness of shoulder with functional reach and decreased functional shoulder motion. Her pain reports have progressed in the last month but continues to have decreased functional strength and ROM. Continuation of skilled therapy is indicated to progress towards her therapy goals. Plan of Care Interventions Electrical Stimulation,Gait Training,Hot Pack/Cold Pack,Manual Therapy,Neuro Re-education,Patient/ Caregiver Education,Therapeutic Activities, Therapeutic Exercise PT Services Indicated Yes Treatment Frequency and 1x/week for 6 visits Duration These treatments will address the objective and functional deficits as defined above. The patient will be advanced safely and appropriately in order for the patient to progress towards his/her prior level of function. Additional exercises will be introduced and as well as a comprehensive home exercise program upon discharge, if needed, ?to ensure carryover of functional gains achieved in the clinic. This treatment plan has been reviewed and agreement upon by the patient.
--- NOTE | 2024-08-01 09:53 | OPREHPOC ---
Outpatient Therapy Plan of Care This is a Multidisciplinary Plan of Care that may contain components documented by all disciplines (PT, OT, and ST.) PT Problem 1 PT Problem #1 Knowledge Deficit PT Goal 1 Goal / Goal Update Pt to be IND with issued HEP. 06/19/24: 1. met Target Visit 8 Progress Met PT Problem 2 PT Problem #2 Pain PT Goal 1 Goal / Goal Update 1. Pt to report pain no greater than 3/10 in the last week, 2. Pt to report no pain while getting dressed 3. Pt to report no difficulty when at a drive thru window. Target Visit 21 Progress Met PT Problem 3 PT Problem #3 Impaired Range of Motion PT Goal 1 Goal / Goal Update 1. Pt to increase active shoulder flexion ROM to 110 deg 2. Pt to increase active shoulder abduction ROM to 100 deg 08/01/24: Not met but at patient functional level Target Visit 10 Progress Not Met
--- NOTE | 2024-08-01 09:53 | PTOPDC ---
Assessment and note entered by Ab Harding, PT Evaluation Information Assessment Status Discharge Diagnosis L shoulder pain ICD-10 Condition Codes (PT) Pain in left shoulder M25.512 Subjective Information Reports that overall she still has to be somewhat careful with reaching high with her left arm, but she is able to use her right. She has been consistent with her duke and band exercises at home. She feels very independent at this point. Reported Pain Level Pain Score 1: Self Report Assessment PT Clinical Summary Patient has met majority of personal goals for therapy at this time. She has seen improved passive motion and active functional reach at this time. It is evident that there is structural change in the shoulder reducing prison potential, but she has shown progress from initial evaluation. She is independent and compliant with HEP at this time and suitable for discharge. Plan of Care PT Services Indicated Yes
== END 2024-08-01 11:50 | disposition home or self-care (01) ==
LOC: ANHGOSHPT 08:30
PROVIDERS: PCP Family Medicine; Visit Provider Nurse Practitioner Family
DX: M25.512 Pain in left shoulder (principal)
CPT/HCPCS: 97110; 97140; 97530

== ENCOUNTER 2024-09-12 09:36 | Outpatient (CLI) | payer MEDICARE, SELFPAY ==
--- OUTSIDE RECORDS SUMMARY | 2024-09-12 09:40 | XMS_ITS | Clinical Summary ---
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 Name Role Phone Unavailable Primary Care Provider Unavailabl e Social History Tobacco Use Types Packs/Day Years Used Date Smoking Tobacco: Never Assessed Comments Unknown Sex and Gender Information Value Date Recorded Sex Assigned at Not on file Legal Sex Female 8:55 PM CDT Gender Identity Not on file Sexual Orientation Not on file Plan of Treatment Health Maintenance Due Date Last Done Comments Hepatitis C Virus (HCV) Screening 1935 TdaP Immunization 1935 Pneumococcal Immunization (5 0+ years) (1 of 1 - PCV) 11/12/1987 Zoster Immunization (1 of 2) 11/12/1987 Respiratory Syncytial Virus (RSV) Immunization (Adult) (1 - 1-dose 75+ series) 2012 SARS-COV-2 Immunization ( - season) 2023 Influenza Immunization (#1) 2024 Hepatitis B Immunization Aged Out No longer eligible based on patient's age to complete this topic Human Papillomavirus (HPV) Immunization Aged Out No longer eligible b ased on patient's age to complete this topic Meningococcal Immunization (ACWY) Aged Out No longer eligible based on patient's age to complete this topic Rotavirus Immunization Aged Out No lo nger eligible based on patient's age to complete this topic
[2024-09-12 19:00] LABS: Hematocrit 45.0 % (37.0-47.0); Hemoglobin 14.6 g/dL (12.0-15.0); Immature Granulocyte Percent A 0.6 % (0-0.5); Lymphocytes Absolute Auto 1.11 K/mm3 (0.9-3.2); Mean Corpuscular HGB Conc 32.4 g/dl (32-36); Mean Corpuscular Hemoglobin 31.1 pg (26-34); Mean Corpuscular Volume 95.7 fl (80-100); Nucleated Red Blood Cells Absolute Auto 0.000 K/mm3 (0.0-0.012); Nucleated Red Blood Cells Perc 0.0 % (0.0-0.2); Platelet Count Result 279 k/mm3 (150-375); Red Blood Count 4.70 M/mm3 (4.2-5.4); White Blood Count 8.5 K/mm3 (4.5-10.0)
[2024-09-12 19:22] LABS: Alanine Aminotransferase 18 U/L (6-35); Albumin Level 4.4 g/dL (3.5-5.1); Alkaline Phosphatase 100 U/L (38-126); Anion Gap 8 mmol/L (4-12); Aspartate Amino Transferase 48 U/L (14-36); Bilirubin,Total 0.8 mg/dL (0.2-1.3); Blood Urea Nitrogen 17 mg/dL (7-17); Calcium 9.9 mg/dL (8.4-10.2); Carbon Dioxide 29 mmol/L (22-30); Chloride 98 mmol/L (98-107); Cholesterol 176 mg/dL (0-200); Estimated Glomerular Filt Rate 54; Glucose 95 mg/dL (65-110); HDL Direct 68 mg/dL; Magnesium 2.2 mg/dL (1.6-2.3); Potassium 4.3 mmol/L (3.4-5.0); Sodium 135 mmol/L (137-145); Total Protein 7.3 g/dL (6.3-8.2); Triglycerides 152 mg/dL (<150)
[2024-09-12 19:52] LABS: Thyroid Stimulating Hormone Reflex 2.040 uIU/mL (0.465-4.68)
[2024-09-12 20:22] LABS: Vitamin B12 > 1000.0 pg/mL (239-931)
[2024-09-12 20:37] LABS: Hemoglobin A1C 5.7 % (<5.7)
== END 2024-09-12 09:37 | disposition home or self-care (01) ==
LOC: ANHGOSHLAB 09:37
PROVIDERS: PCP Family Medicine; Visit Provider Nurse Practitioner Family
DX: E55.9 Vitamin D deficiency, unspecified (principal); R73.9 Hyperglycemia, unspecified; E78.2 Mixed hyperlipidemia; I10 Essential (primary) hypertension; E53.8 Deficiency of other specified B group vitamins
CPT/HCPCS: 36415; 80053; 80061; 82306; 82607; 83036; 83735; 84443; 85025

== ENCOUNTER 2025-01-29 08:36 | Outpatient (CLI) | payer MEDICARE, SELFPAY ==
--- NOTE | ~2025-01-29 | MM_ITS ---
EXAMINATION: MM screening [facility] BI w jamie HISTORY: Screening. previous left lumpectomy/partial mastectomy. TECHNIQUE: Craniocaudal and mediolateral oblique 3-D tomosynthesis images were obtained and synthetic 2-D images were generated. CAD analysis was submitted and interpreted. COMPARISON: 2023, 2022, and 2021. BREAST PARENCHYMAL COMPOSITION: Not Dense: There are scattered areas of fibroglandular FINDINGS: No suspicious masses are seen. There are no suspicious calcifications. There are postoperative changes from previous left lumpectomy/partial mastectomy. No unexplained architectural distortion is seen. There are no skin or nipple abnormalities identified. There is no adenopathy seen on the images submitted. IMPRESSION: No mammographic evidence to suggest malignancy is seen. The patient may return to screening mammography as per ACR guidelines. BI-RADS 2 - Benign. Reviewed, dictated and finalized at location C. 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
== END 2025-01-29 08:37 | disposition home or self-care (01) ==
PROVIDERS: PCP Family Medicine; Visit Provider Obstetrics & Gynecology
DX: Z12.31 Encounter for screening mammogram for malignant neoplasm of breast (principal)
CPT/HCPCS: 77063; 77067